=== PATIENT | female | born 1985 | race Caucasian/White ===

== ENCOUNTER 2016-07-13 13:39 | Day surgery (SDC) | payer OTHER ==
[~2016-07-13] VITALS: Ht 165.1 cm; Wt 59.9 kg
[~2016-07-13 13:39] MED LIST: 0.9% Sodium Chloride 1,000 ML IV PRN; LEVO75CA2 PO; LEVO75TA4 PO; Sodium Chloride LOK Flush 10 mL Syringe IV PRN; fentaNYL-PF 50 mCg/mL 2 mL Inj IVPUSH PRN
[2016-07-13 15:10] VITALS: BP 117/66; PULSE 44; RESP 16; O2SAT 100
--- NOTE | 2016-07-13 16:28 | PCM.ENDCOL ---
Colonoscopy Date of Service: July 13, 2016 Physician Yunior Cano MD Pre Procedure Diagnosis: Blood in the stools diarrhea Post Procedure Dx & Findings: Normal TI normal colon Procedure Colonoscopy PROCEDURE IN DETAIL: Prep [default value] Withdrawal time 11 minutes After unremarkable rectal examination the Olympus video colonoscope was inserted patient's anal canal and was advanced to cecum. Landmarks were identified including the ileocecal valve and appendiceal orifice. Scope further events the terminal ileum. Terminal showed normal villous structures without ulcer or mass erosions. Advanced 8 cm. Scope was withdrawn systematically. Visualized colonic mucosa showed healthy shiny mucosa with normal healthy-appearing vasculature. Normal colon. Random biopsy obtained from the cecum to the colon. In the rectum retroflexion was done which showed hemorrhoids. Anal canal was inspected carefully on the way out and hemorrhoids noted. Impression Random biopsy obtained for diarrhea. Normal colon Normal TI Hemorrhoids Recommendation Repeat colonoscopy at 48 years old. I think her diarrhea and blood is due to lack of blood supply due to significant running. She said she only has diarrhea when she runs over 10 miles. Decrease amount of distance running. Presedation Assessment Risks and Benefits Informed consent was obtained from the patient after all risks and benefits including but not limited to drug reaction, infection, pain, bleeding, perforation, as well as alternatives were discussed. Patient monitoring Continuous pulse oximetry, cardiac monitoring, blood pressure monitoring, IV access, and oxygen at 2L per nasal cannula. Periprocedural Fentanyl: Fentanyl 100mcg Incrementally Midazolam: Midazolam 5mg Incrementally Complications There were no periprocedural complications identified. Post Procedure Plan Post Procedure Recommendations 1. Restrict activities today. 2. Resume normal activities in the morning. 3. Resume medications. 4. Patient informed of normal post procedure side effects as bloating, drowsiness, blood streaking in the stool. 5. average risk CRCS. If colon polyps come back as: -Hyperplastic- can repeat colonoscopy in 10 years -Tubular adenoma- repeat colonoscopy in 5 years -Tubulovillous/villous adenoma- repeat colonoscopy in 3 years -If any dysplasia- return to clinic as soon as possible 6. Please don't hesitate to call me with any questions. Yunior Cano MD July 13, 2016 16:28
[2016-07-13 16:30] VITALS: BP 105/53; PULSE 59; RESP 12; O2SAT 99
[2016-07-13 16:42] VITALS: BP 105/68; PULSE 53; RESP 12; O2SAT 97
--- NOTE | 2016-07-16 18:36 | PATH ---
SURGICAL PATHOLOGY Attending Physician:Yunior Cano M.D. CASE STATUS: Signed Out PATIENT NAME: VALENCIA NICOLE PID: [id number] : 1985 DATE COLLECTED:07/13/2016 00:00 SPECIMEN: Colon, Biopsy CLINICAL HISTORY: 1). RANDOM COLON BIOPSY FINAL DIAGNOSIS: Random Colon, Biopsy: Colonic mucosa with melanosis coli and otherwise no diagnostic abnormality. Negative for active, chronic and microscopic colitis. Negative for dysplasia and malignancy. ICD10: K52.9 GROSS DESCRIPTION: The specimen is received in one formalin filled container labeled with the patient's name, sublabeled "random colon" and consists of multiple portions of tissue which aggregate to 0.4 x 0.4 x 0.3 CM. The specimen is entirely submitted in one cassette. 07/14/2016 [facility] ICD-9 CODES: CPT CODES: 1: 59522 Electronically Signed Out Vielka Frank MD [facility] Pathology [facility] [address], [place] [address] Technical component performed at [facility], [address] [place] [address] [address], [place], [address]
== END 2016-07-13 23:59 | disposition home or self-care (01) ==
LOC: END 13:39
PROVIDERS: ATTEND Internal Medicine
DX: R19.7 Diarrhea, unspecified (principal); K64.8 Other hemorrhoids; R10.9 Unspecified abdominal pain
CPT/HCPCS: 45380; 99153; G0500; J7030